=== PATIENT | male | born 1945 | race Caucasian/White ===

== ENCOUNTER 2023-09-03 19:37 | Emergency (ER) | payer OTHER ==
[~2023-09-03] VITALS: Ht 172.7 cm; Wt 114.8 kg
[2023-09-03 20:52] VITALS: BP 136/80; PULSE 64; RESP 16; O2SAT 18
[2023-09-03] MEDS ORDERED: MUPI22OI2 TP (21:33)
[2023-09-03] MEDS: NEOMY SULF/BACITRA/POLYMYXIN B 1 EACH PACKET TP STA (21:44)
[2023-09-03] MEDS: ACETAMINOPHEN 500 MG TABLET PO STA (21:53)
== END 2023-09-03 22:00 | disposition home or self-care (01) ==
LOC: EDH 19:37
DX: S00.01XA Abrasion of scalp, initial encounter (principal); E78.00 Pure hypercholesterolemia, unspecified; I10 Essential (primary) hypertension; Z90.49 Acquired absence of other specified parts of digestive tract; Z98.890 Other specified postprocedural states; Z86.73 Personal history of transient ischemic attack (TIA), and cerebral infarction without residual deficits; W01.0XXA Fall on same level from slipping, tripping and stumbling without subsequent striking against object, initial encounter; Y93.89 Activity, other specified; Y92.89 Other specified places as the place of occurrence of the external cause; Y99.8 Other external cause status
CPT/HCPCS: 70450; 72125